=== PATIENT | male | born 1950 | race African-American/Black ===

== ENCOUNTER 2018-08-05 08:21 | Emergency (ER) | payer OTHER ==
[~2018-08-05] VITALS: Ht 177.8 cm; Wt 74.0 kg
[2018-08-05] MEDS ORDERED: SODIUM CHLORIDE 0.9% 1,000 ML IV ONE (10:23)
[2018-08-05 11:05] LABS: BASOPHILS % 1.5 % (0.0-2.0); EOSINOPHILS % 2.1 % (0.0-5.0); HEMATOCRIT. 37.6 % (42.0-52.0); HEMOGLOBIN. 11.9 g/dL (14.0-18.0); LYMPHOCYTES % 25.9 % (20.0-50.0); MEAN CORPUSCULAR HEMOGLOBIN 27.1 pg (28.0-32.0); MEAN CORPUSCULAR VOLUME 85.7 fL (80.0-94.0); MEAN PLATELET VOLUME 8.5 fl (7.4-10.4); MONOCYTES % 10.7 % (2.0-8.0); NEUTROPHILS % 59.8 % (40.0-76.0); PLATELET 181 x1000/uL (130-400); RED BLOOD CELL COUNT 4.39 mill/uL (4.7-6.1); RED CELL DISTRIBUTION WIDTH 15.4 % (11.6-14.6)
[2018-08-05 11:10] LABS: INR 1.2; PROTHROMBIN TIME 11.7 sec (9.1-11.1)
[2018-08-05 11:12] LABS: CHLORIDE 114 mEq/L (98-107)
[2018-08-05] MEDS ORDERED: SODIUM CHLORIDE 0.45% 500 ML IV ONE (11:30)
[2018-08-05 14:34] VITALS: BP 151/62
== END 2018-08-05 15:21 | disposition short-term general hospital (02) ==
LOC: ER 10:03 → CANBEDREQ 15:56
DX: E87.0 Hyperosmolality and hypernatremia (principal); E87.8 Other disorders of electrolyte and fluid balance, not elsewhere classified; E11.9 Type 2 diabetes mellitus without complications; I10 Essential (primary) hypertension; Z86.73 Personal history of transient ischemic attack (TIA), and cerebral infarction without residual deficits
CPT/HCPCS: 36415; 70450; 71045; 80053; 82962; 83880; 84484; 85025; 85610; 93005; 96360; 96361; 99285; J7030